=== PATIENT | male | born 1980 | race Caucasian/White ===

== ENCOUNTER 2020-09-08 04:17 | Day surgery (SDC) | payer BC, OTHER ==
[2020-08-19 13:55] VITALS: BMI 33.2
[2020-09-08] MEDS ORDERED: EPINEPHrine 1:1,000 1 MG/1 ML - 30ML VIAL (INJECTION) ONE (07:19)
[2020-09-08] MEDS ORDERED: PROPOFOL 20 ML ONE ×3 (07:39)
[2020-09-08] MEDS ORDERED: MIDAZOLAM HCL 2 MG/2 ML SINGLE DOSE VIAL ONE (07:41)
[2020-09-08 09:52] VITALS: BP 126/82; PULSE 67; TEMP 97.6
== END 2020-09-08 09:40 | disposition home or self-care (01) ==
LOC: JASU-SURG 04:17
PROVIDERS: ATTEND Urology
PROC: 0TF3XZZ Fragmentation in Right Kidney Pelvis, External Approach (ICD-10-PCS; principal; 2020-09-08 08:30)
DX: N20.0 Calculus of kidney (principal)

== ENCOUNTER 2020-10-06 04:11 | Day surgery (SDC) | payer BC, OTHER ==
[2020-10-01 15:21] VITALS: BMI 34.0
[2020-10-06 06:37] VITALS: TEMP 97.7
[2020-10-06] MEDS ORDERED: MIDAZOLAM HCL 2 MG/2 ML SINGLE DOSE VIAL ONE ×3 (08:38→09:06)
[2020-10-06] MEDS ORDERED: PROPOFOL 20 ML ONE ×2 (08:39)
[2020-10-06 09:29] VITALS: BP 149/85; PULSE 73
[2020-10-06] MEDS ORDERED: ONDANSETRON 4 MG/2 ML VIAL IVPUSH PRN (10:16)
[2020-10-06] MEDS ORDERED: ACETAMINOPHEN 325 MG TABLET (FP) PO PRN (10:16)
[2020-10-06] MEDS ORDERED: oxyCODONE HCL 5 MG TABLET PO PRN (10:16)
[2020-10-06] MEDS ORDERED: LACTATED RINGERS SOLUTION 1,000 ML IV SCH (10:30)
== END 2020-10-06 10:45 | disposition home or self-care (01) ==
LOC: JASU-SURG 04:11
PROVIDERS: ATTEND Urology
PROC: 0TF4XZZ Fragmentation in Left Kidney Pelvis, External Approach (ICD-10-PCS; principal; 2020-10-06 08:30)
DX: N20.0 Calculus of kidney (principal)